=== PATIENT | male | born 1995 | race Caucasian/White ===

== ENCOUNTER 2023-09-23 12:43 | Emergency (ER) | payer MEDICAID ==
[~2023-09-23] VITALS: Ht 188 cm
[2023-09-23 13:51] LABS: *BILIRUBIN,URIN NEGATIVE (NEGATIVE); *BLOOD, URINE NEGATIVE (NEGATIVE); *CLARITY,URINE CLEAR (CLEAR); *COLOR,URINE YELLOW (YELLOW); *KETONES,URINE NEGATIVE (NEGATIVE); *PROTEIN,URINE NEGATIVE (NEGATIVE); *UROBILINOGEN,URINE 0.2 E.U./dl (NORMAL); LEUKOCYTE ESTERASE ,URINE NEGATIVE (NEGATIVE); NITRITE, URINE NEGATIVE (NEGATIVE); PH,URINE 6.5 (5.0-8.0); UGLUCOSE NEGATIVE (NEGATIVE)
[2023-09-23 15:03] VITALS: BP 130/80; TEMP 98; O2SAT 99
[2023-09-24 23:10] LABS: *CHLAMYDIA NAA Negative (Negative); *GC NAA Negative (Negative)
[2023-09-25 04:06] LABS: *TRIC.VAG. NAA Negative (Negative)
== END 2023-09-23 15:04 | disposition home or self-care (01) ==
LOC: ER 12:44
DX: B07.9 Viral wart, unspecified (principal); Z60.2 Problems related to living alone
CPT/HCPCS: 87491; A4606; A4663